=== PATIENT | female | born 1960 | race Caucasian/White ===

== ENCOUNTER 2016-06-12 18:27 | Emergency (ER) | payer OTHER ==
[~2016-06-12] VITALS: Ht 154.9 cm; Wt 64.5 kg
[~2016-06-12 18:27] MED LIST: IBUP400T22 PO
[2016-06-12 18:34] VITALS: Ht 154.9 cm; Wt 64.5 kg
[2016-06-12 21:18] LABS: ADD SCAN DIFF NO
[2016-06-12 21:20] LABS: BASOPHIL # 0.1 10^3/ul (0.0-0.1); BASOPHILS % 0.6 % (0.0-2.0); EOSINOPHILS # 0.3 10^3/ul (0.0-0.5); EOSINOPHILS % 3.5 % (0.0-7.0); HEMATOCRIT 40.2 % (37.0-47.0); HEMOGLOBIN 13.4 g/dl (12.0-16.0); LYMPHOCYTES % 37.6 % (15.0-51.0); MEAN CORPUSCULAR HEMOGLOBIN 30.1 pg (29.0-33.0); MEAN CORPUSCULAR HGB CONC 33.3 g/dl (32.0-37.0); MEAN CORPUSCULAR VOLUME 90.3 fl (82.0-101.0); MEAN PLATELET VOLUME 11.5 fl (7.4-10.4); MONOCYTE # 0.5 10^3/ul (0.3-0.9); MONOCYTES % 6.4 % (0.0-11.0); NEUTROPHIL # 4.2 10^3/ul (1.6-7.5); NEUTROPHILS % 51.7 % (39.0-77.0); PLATELET COUNT 275 10^3/UL (140-415); RED BLOOD COUNT 4.45 10^6/ul (4.20-5.40); RED CELL DISTRIBUTION WIDTH 12.9 % (11.5-14.5)
[2016-06-12 21:22] LABS: ALBUMIN 4.7 g/dl (3.3-4.9)
[2016-06-12 21:23] LABS: CHLORIDE 102 mmol/L (97-110); POTASSIUM 3.5 mmol/L (3.5-5.1); SODIUM 143 mmol/L (135-144)
[2016-06-12 21:25] LABS: ANION GAP 20 (8-16); ASPARTATE AMINO TRANSFERASE 25 IU/L (15-46); BILIRUBIN,INDIRECT 0.4 mg/dl (0-1.1); BILIRUBIN,TOTAL 0.4 mg/dl (0.2-1.3); CARBON DIOXIDE 25 mmol/L (21-31); CREATININE 0.72 mg/dl (0.44-1.00)
[2016-06-12 21:26] LABS: ALANINE AMINOTRANSFERASE 23 IU/L (13-69); ALBUMIN/GLOBULIN RATIO 1.27; ALKALINE PHOSPHATASE 134 IU/L (42-121); BLOOD UREA NITROGEN 13 mg/dl (7-20); CALCIUM 9.4 mg/dl (8.4-10.2); GLUCOSE 102 mg/dl (70-220); TOTAL PROTEIN 8.4 g/dl (6.1-8.1)
[2016-06-12] MEDS ORDERED: PANTOPRAZOLE 40 MG INJ IV ONE (21:30)
[2016-06-12 21:40] LABS: TROPONIN-I < 0.012 ng/ml (0.00-0.12)
--- NOTE | 2016-06-12 21:59 | RADRPT ---
PROCEDURE: XR Chest. CLINICAL INDICATION: Chest pain. TECHNIQUE: Single frontal chest x-ray. COMPARISON: 10/25/2013 FINDINGS: The cardiomediastinal silhouette is unremarkable. There is no CHF.. No focal infiltrate is seen. T here is no pleural effusion. There is no pneumothorax. The osseous structures are unremarkable. IMPRESSION: 1. No active disease. RPTAT: [facility]VK .Vinh Montelongo MD, MD Date Time Electronically viewed and signed by .Vinh Montelongo MD, on 06/12/2016 21:58 .K/
[2016-06-12 22:40] VITALS: BP 148/88; PULSE 53; RESP 20; TEMP 99.1
--- NOTE | 2016-06-12 22:48 | ERD ---
ER Documentation Chief Complaint Date/Time DATE: 06/12/16 TIME: 22:41 Chief Complaint CWP x1 month, intermittent.swolllen breast HPI 56-year-old female ambulatory to the ED complaining of a one-month history of intermittent, burning, worsening, moderate epigastric abdominal pain. Denies nausea, vomiting, diarrhea or constipation. No hematemesis, hematochezia or melanotic stools. No relieving or exacerbating factors. No chest pain, palpitations or shortness of breath. No URI symptoms or cough. Today she also noticed that her left breast seems to be swollen but not tender. No skin changes or nipple discharge. Denies dysuria, polyuria, hematuria or flank pain. No anorexia or weight loss. No fevers, chills or night sweats. ROS All systems reviewed and are negative except as per history of present illness. Medications Home Meds Active Scripts Pantoprazole* (Protonix*) 40 Mg Tablet.dr, 40 MG PO DAILY, #20 TAB Prov:LI YEAGER MD 06/12/16 Ibuprofen* (Motrin*) 400 Mg Tab, 400 MG PO Q6H Y for PAIN AND OR ELEVATED TEMP, #30 TAB Prov:HAZEL VALLEJO PA-C 12/19/15 Reported Medications [None] No Conflict Check 09/22/14 Allergies Allergies: Coded Allergies: No Known Allergy (Unverified , 11/06/13) PMhx/Soc Reviewed in chart. As per HPI. History of Surgery: Yes (hernia, sujey, TAHBSO) Anesthesia Reaction: No Hx Neurological Disorder: No Hx Respiratory Disorders: No Hx Cardiac Disorders: No Hx Psychiatric Problems: No Hx Miscellaneous Medical Probl: Yes (athritis, gastritis) Hx Alcohol Use: No Hx Substance Use: No Hx Tobacco Use: No Smoking Status: Unknown if ever smoked FmHx Mother: Gastric cancer, sister: Brain cancer, sister: Lung cancer no family history of coronary artery disease or stroke. Physical Exam Vitals Vital Signs Date Time Temp Pulse Resp B/P Pulse Ox O2 Delivery O2 Flow Rate FiO2 06/12/16 22:40 99.1 53 20 148/88 99 Room Air 06/12/16 20:44 99.1 55 20 141/88 99 Room Air 06/12/16 18:34 99.1 65 20 139/64 99 Physical Exam Const: Alert, anxious but in no acute distress. Head: Atraumatic Eyes: Normal Conjunctiva ENT: Normal External Ears, Nose and Mouth. Neck: Full range of motion. Nontender. No lymphadenopathy. Resp: Breath sounds are equal and clear to auscultation bilaterally Cardio: Regular rate and rhythm, no murmurs Chest Wall: Left breast mildly engorged. Nontender. No discrete masses palpated. No skin changes or nipple discharge. No axillary lymphadenopathy. Abd: Soft, mild epigastric tenderness. non distended. Normal bowel sounds. No rebound or guarding. No masses or abnormal pulsations. Skin: No petechiae or rashes Back: No midline or flank tenderness Ext: No cyanosis, or edema Neur: Awake and alert Psych: Patient appears anxious but not depressed. Result Diagram: 06/12/16203906/12/162039 Results 24 hrs Laboratory Tests Test 06/12/16 20:40 White Blood Count 8.010^3/ul Red Blood Count 4.4510^6/ul Hemoglobin 13.4g/dl Hematocrit 40.2% Mean Corpuscular Volume 90.3fl Mean Corpuscular Hemoglobin 30.1pg Mean Corpuscular Hemoglobin Concent 33.3g/dl Red Cell Distribution Width 12.9% Platelet Count 91280^3/UL Mean Platelet Volume 11.5fl Neutrophils % 51.7% Lymphocytes % 37.6% Monocytes % 6.4% Eosinophils % 3.5% Basophils % 0.6% Nucleated Red Blood Cells % 0.0/100WBC Neutrophils # 4.210^3/ul Lymphocytes # 3.010^3/ul Monocytes # 0.510^3/ul Eosinophils # 0.310^3/ul Basophils # 0.110^3/ul Nucleated Red Blood Cells # 0.010^3/ul Sodium Level 143mmol/L Potassium Level 3.5mmol/L Chloride Level 102mmol/L Carbon Dioxide Level 25mmol/L Anion Gap 20 Blood Urea Nitrogen 13mg/dl Creatinine 0.72mg/dl Glucose Level 102mg/dl Calcium Level 9.4mg/dl Total Bilirubin 0.4mg/dl Direct Bilirubin 0.00mg/dl Indirect Bilirubin 0.4mg/dl Aspartate Amino Transf (AST/SGOT) 25IU/L Alanine Aminotransferase (ALT/SGPT) 23IU/L Alkaline Phosphatase 134IU/L Troponin I < 0.012ng/ml Total Protein 8.4g/dl Albumin 4.7g/dl Globulin 3.70g/dl Albumin/Globulin Ratio 1.27 Lipase 100U/L Current Medications Medications (Trade) Dose Ordered Sig/Damien Route PRN Reason Start Time Stop Time Status Last Admin Dose Admin Pantoprazole (Protonix Iv) 40 mg ONCE ONCE IV 06/12/16 21:30 06/12/16 21:31 DC 06/12/16 21:26 EKG: Time: 18:39. Sinus rhythm. Ventricular rate 60, normal AL and QRS intervals. No acute ST segment elevation or depression. No axis deviation or ectopy. EP Impression: Normal EKG Imaging: PROCEDURE: XR Chest. CLINICAL INDICATION: Chest pain. TECHNIQUE: Single frontal chest x-ray. COMPARISON: 10/25/2013 FINDINGS: The cardiomediastinal silhouette is unremarkable. There is no CHF.. No focal infiltrate is seen. There is no pleural effusion. There is no pneumothorax. The osseous structures are unremarkable. IMPRESSION: 1. No active disease. RPTAT: [facility]VK .Vinh Montelongo MD, MD Date Time Electronically viewed and signed by .Vinh Montelongo MD, MD on 06/12/2016 21:58 .K/ Procedures/MDM DOCUMENTS REVIEWED: ED nurse, prior ED, prior MEDICAL DECISION MAKIN-year-old female ambulatory to the ED complaining of a one-month history of abdominal pain. Symptoms consistent with gastritis/ GERD improved with IV Protonix. No anemia or signs of bleeding. Patient did have endoscopy 09/12 2013 which revealed esophagitis and gastritis. Colonoscopy was unremarkable. Abdominal exam is benign without rebound, guarding or signs of peritonitis. An acute intra-abdominal process including but not limited to diverticulitis, appendicitis, bowel obstruction and mesenteric ischemia are unlikely. An occult malignancy is not ruled out. She complains of left breast engorgement and will need mammogram. Her most recent mammogram was 1 year ago which was negative. Triage note indicates chest pain but the patient denies any chest pain. Stable for discharge with proton pump inhibitors and urgent outpatient follow-up as counseled. Counseled patient regarding diagnostic workup, diagnosis and need for followup. Understands to return to ED if symptoms recur, worsen or any other concerns. Departure Diagnosis: Primary Impression: Abdominal pain, acute, epigastric Additional Impressions: Acute gastritis Gastritis type: unspecified gastritis Gastritis bleeding: without bleeding Qualified Code: K29.00 - Acute gastritis without hemorrhage, unspecified gastritis type Breast pain, left Condition: Stable Patient Instructions: Gastritis (Adult) LI YEAGER MD Jun 12, 2016 22:48
[2016-06-12] MEDS ORDERED: PANT40TA3 PO (22:56)
== END 2016-06-12 23:08 | disposition home or self-care (01) ==
LOC: E/R 18:27
DX: R10.13 Epigastric pain (principal); K29.00 Acute gastritis without bleeding; N64.4 Mastodynia
CPT/HCPCS: 36415; 71010; 80053; 83690; 84484; 85025; 93005; 96374; 99285; C9113